=== PATIENT | female | born 2000 | race Caucasian/White ===

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

== ENCOUNTER 2021-03-28 16:06 | Emergency (ER) | payer OTHER ==
[~2021-03-28] VITALS: Ht 160 cm; Wt 64.0 kg
[2021-03-28 16:42] LABS: BASOPHILS % (AUTO) 0.2 % (0.0-2.0); EOSINOPHILS % (AUTO) 0.5 % (1.0-6.0); HEMATOCRIT 36.7 % (36-46); HEMOGLOBIN 11.9 g/dL (12.0-16.0); LYMPHOCYTES # (AUTO) 2.1 K/uL (1.0-4.8); LYMPHOCYTES % (AUTO) 22.3 % (22.0-44.0); MEAN CORPUSCULAR HEMOGLOBIN 28.6 pg (26.0-34.0); MEAN CORPUSCULAR HGB CONC 32.5 G/dL (31.0-37.0); MEAN CORPUSCULAR VOLUME 88 fL (80-100); MONOCYTES # (AUTO) 0.4 K/uL (0.1-1.0); MONOCYTES % (AUTO) 3.9 % (2.0-9.0); NEUTROPHILS # (AUTO) 6.9 K/uL (1.8-7.7); NEUTROPHILS % (AUTO) 73.1 % (40.0-70.0); PLATELET COUNT (AUTO) 234 K/uL (150-450); RED BLOOD CELL COUNT(AUTO) 4.17 MIL/uL (4.00-5.20); RED CELL DISTRIBUTION WIDTH 13.5 % (11.5-14.5)
[2021-03-28 16:49] LABS: ANION GAP 8 mmol/L (8-16); CALCIUM, TOTAL 8.2 mg/dL (8.8-10.5); CARBON DIOXIDE 29 mmol/L (22-29); CHLORIDE 106 mmol/L (98-107); CREATININE 0.63 mg/dL (0.60-1.30); GLOMERULAR FILTR. RATE CALC > 60 mL/min (>60); GLUCOSE,RANDOM 91 mg/dL (70-110); POTASSIUM 3.6 mmol/L (3.5-5.1); SODIUM SERUM 143 mmol/L (136-145); UREA NITROGEN, BLOOD 8 mg/dL (7-18)
[2021-03-28 17:04] LABS: ALANINE AMINOTRANSFERASE 28 U/L (12-78); ALBUMIN 3.7 g/dL (3.4-5.0); ALKALINE PHOSPHATASE 80 U/L (46-116); ASPARTATE AMINOTRANSFERASE 17 U/L (15-37); BILIRUBIN,TOTAL 0.4 mg/dL (0.1-1.0); HCG,QUANTITATIVE < 1 mIU/mL (0-6); LIPASE 84 U/L (73-393)
[2021-03-28 17:36] LABS: APPEARANCE,URINE CLOUDY (CLEAR); BILIRUBIN,URINE NEGATIVE (NEGATIVE); GLUCOSE, URINE (UA) NEGATIVE (NEGATIVE); KETONES,URINE NEGATIVE (NEGATIVE); LEUKOCYTE ESTERASE ,URINE MODERATE (NEGATIVE); NITRATE,URINE NEGATIVE (NEGATIVE); OCCULT BLOOD,URINE LARGE (NEGATIVE); PROTEIN,URINE NEGATIVE (NEGATIVE); UROBILINOGEN,URINE 0.2 mg/dL (<=1.0)
[2021-03-28 17:43] LABS: BACTERIA,URINE Moderate /HPF (None Seen); SQUAMOUS EPITHELIAL CELL,UR Moderate /LPF (None Seen)
[2021-03-28] MEDS ORDERED: SODIUM CHLORIDE 0.9% 1,000 ML IV ONE (17:45)
[2021-03-28] MEDS ORDERED: KETOROLAC TROMETHAMINE 30 MG/ML VIAL IVP ONE (17:45)
[2021-03-28] MEDS ORDERED: ONDANSETRON HCL 4 MG/2 ML VIAL IVP ONE (17:45)
[2021-03-28] MEDS ORDERED: SODIUM CHLORIDE 0.9% 100 ML ONE (18:01)
[2021-03-28] MEDS ORDERED: IOHEXOL 350 MG/ML 100 ML VIAL ONE (18:01)
[2021-03-28] MEDS ORDERED: CIPROFLOXACIN HCL 250 MG TABLET PO ONE (20:00)
[2021-03-28] MEDS ORDERED: MetroNIDAZOLE 250 MG TABLET PO ONE (20:00)
[2021-03-29 00:43] VITALS: BP 121/68
== END 2021-03-29 01:03 | disposition home or self-care (01) ==
LOC: EMS 16:12
DX: K52.9 Noninfective gastroenteritis and colitis, unspecified (principal); N39.0 Urinary tract infection, site not specified
CPT/HCPCS: 36415; 74177; 76856; 80053; 81001; 83690; 84702; 85025; 87086; 96361; 96374; 96375; 99285; A9575; J1885; J2405; J7030; J7050; Q9967

== ENCOUNTER 2023-04-18 10:53 | Emergency (ER) | payer OTHER ==
[~2023-04-18] VITALS: Ht 160 cm; Wt 77.3 kg
[2023-04-18 10:58] VITALS: TEMP 97.7
[2023-04-18 11:18] LABS: BASOPHILS % (AUTO) 0.7 % (0.0-2.0); EOSINOPHILS % (AUTO) 0.4 % (1.0-6.0); HEMATOCRIT 39.9 % (36-46); HEMOGLOBIN 13.3 g/dL (12.0-16.0); LYMPHOCYTES # (AUTO) 1.2 K/uL (1.0-4.8); LYMPHOCYTES % (AUTO) 30.6 % (22.0-44.0); MEAN CORPUSCULAR HEMOGLOBIN 29.5 pg (26.0-34.0); MEAN CORPUSCULAR HGB CONC 33.4 G/dL (31.0-37.0); MEAN CORPUSCULAR VOLUME 88 fL (80-100); MONOCYTES # (AUTO) 0.4 K/uL (0.1-1.0); MONOCYTES % (AUTO) 10.8 % (2.0-9.0); NEUTROPHILS # (AUTO) 2.2 K/uL (1.8-7.7); NEUTROPHILS % (AUTO) 57.5 % (40.0-70.0); PLATELET COUNT (AUTO) 208 K/uL (150-450); RED BLOOD CELL COUNT(AUTO) 4.52 MIL/uL (4.00-5.20); WHITE BLOOD COUNT (AUTO) 3.8 K/uL (4.5-11.0)
[2023-04-18 11:34] LABS: ANION GAP 9 mmol/L (8-16); CALCIUM, TOTAL 8.4 mg/dL (8.8-10.5); CARBON DIOXIDE 29 mmol/L (22-29); CHLORIDE 103 mmol/L (98-107); CREATININE 0.59 mg/dL (0.60-1.30); GLOMERULAR FILTR. RATE CALC > 60 mL/min (>60); GLUCOSE,RANDOM 82 mg/dL (70-110); POTASSIUM 3.8 mmol/L (3.5-5.1); SODIUM SERUM 141 mmol/L (136-145); UREA NITROGEN, BLOOD 8 mg/dL (7-18)
[2023-04-18 11:34] LABS: APPEARANCE,URINE CLEAR (CLEAR); BILIRUBIN,URINE NEGATIVE (NEGATIVE); COLOR,URINE YELLOW (YELLOW); GLUCOSE, URINE (UA) NEGATIVE (NEGATIVE); KETONES,URINE TRACE mg/dL (NEGATIVE); LEUKOCYTE ESTERASE ,URINE NEGATIVE (NEGATIVE); NITRATE,URINE NEGATIVE (NEGATIVE); OCCULT BLOOD,URINE NEGATIVE (NEGATIVE); PROTEIN,URINE TRACE mg/dL (NEGATIVE); SPECIFIC GRAVITIY, URINE 1.026 (1.003-1.030); UROBILINOGEN,URINE <=1.0 mg/dL (<=1.0)
[2023-04-18 11:39] LABS: ALANINE AMINOTRANSFERASE 28 U/L (12-78); ALBUMIN 3.5 g/dL (3.4-5.0); ALKALINE PHOSPHATASE 96 U/L (46-116); ASPARTATE AMINOTRANSFERASE 25 U/L (15-37); BILIRUBIN,TOTAL 0.2 mg/dL (0.1-1.0); HCG,QUANTITATIVE < 1 mIU/mL (0-6); LIPASE 25 U/L (16-77); TOTAL PROTEIN, SERUM 6.8 g/dL (6.4-8.2)
[2023-04-18] MEDS ORDERED: ONDANSETRON HCL 4 MG TABLET PO ONE (12:00)
[2023-04-18] MEDS ORDERED: ACETAMINOPHEN 500 MG TABLET PO ONE (12:00)
[2023-04-18] MEDS ORDERED: KETOROLAC TROMETHAMINE 30 MG/ML VIAL IVP ONE (12:15)
[2023-04-18] MEDS ORDERED: ONDANSETRON HCL 4 MG/2 ML VIAL IVP ONE (12:15)
[2023-04-18] MEDS ORDERED: SODIUM CHLORIDE 0.9% 2,000 ML IV ONE (12:15)
[2023-04-18] MEDS ORDERED: DIPHENOXYLATE/ATROP 2.5-0.025 MG TABLET PO ONE (12:15)
[2023-04-18] MEDS ORDERED: ONDA-104 PO (12:59)
[2023-04-18] MEDS ORDERED: ACET-66 PO (12:59)
[2023-04-18] MEDS ORDERED: DIPH-654 PO (12:59)
[2023-04-18 13:00] VITALS: BP 110/68; PULSE 80; RESP 12
== END 2023-04-18 13:09 | disposition home or self-care (01) ==
LOC: EMS 10:55
DX: K52.9 Noninfective gastroenteritis and colitis, unspecified (principal)
CPT/HCPCS: 99284; 96374; 96361; 96375; 80053; 81003; 83690; 84702; 85025; 36415; J1885; J2405; J7030; Q0162

== ENCOUNTER 2023-04-27 09:53 | Emergency (ER) | payer OTHER ==
[~2023-04-27] VITALS: Ht 162.6 cm; Wt 68.2 kg
[~2023-04-27 09:53] MED LIST changes: +ACET-66 PO; +DIPH-654 PO; +ONDA-104 PO; -PREN-64 PO
[2023-04-27 09:56] VITALS: TEMP 98.5
[2023-04-27] MEDS ORDERED: PredniSONE 20 MG TABLET PO ONE (10:30)
[2023-04-27] MEDS ORDERED: DiphenhydrAMINE HCL 50 MG/ML VIAL IM ONE (10:30)
[2023-04-27 10:33] VITALS: BP 108/68; PULSE 93; RESP 18
[2023-04-27] MEDS ORDERED: DIPH25CA85 PO (12:13)
[2023-04-27] MEDS ORDERED: PRED-554 PO (12:13)
[2023-04-27] MEDS ORDERED: EPIN0.3P3 IM (12:15)
== END 2023-04-27 12:31 | disposition home or self-care (01) ==
LOC: EMS 10:08
DX: L50.9 Urticaria, unspecified (principal); Z90.89 Acquired absence of other organs
CPT/HCPCS: 99283; 96372; J1200; J7512

== ENCOUNTER 2023-07-02 04:06 | Emergency (ER) | payer OTHER ==
[~2023-07-02] VITALS: Ht 160 cm; Wt 80.5 kg
[~2023-07-02 04:06] MED LIST changes: +DIPH25CA85 PO; +EPIN0.3P3 IM; +PRED-554 PO
[2023-07-02 04:09] VITALS: BP 106/60; PULSE 91; RESP 18; TEMP 98.6
== END 2023-07-02 05:08 | disposition left against medical advice (07) ==
LOC: EMS 04:06
DX: R10.9 Unspecified abdominal pain (principal); Z53.21 Procedure and treatment not carried out due to patient leaving prior to being seen by health care provider
CPT/HCPCS: 99281; Z7502